=== PATIENT | female | born 1990 | race Caucasian/White ===

== ENCOUNTER → 2020-01-24 | Outpatient (CLI) | payer OTHER, MEDICAID ==
[~2020-01-24] MED LIST: LYRICA 75 MG CA75 MG PO; MACROBID 100 M100 M1 PO; NORCO 5-325 TA1 EACH PO; PERCOCET 10-321 EAC1 PO; TRAMADOL 50 MG50 MG PO; VICODIN OR; ZOFRAN ODT4 MG PO
== END ==
LOC: M.PC 08:20
PROVIDERS: ATTEND Physical Medicine & Rehabilitation
DX: M79.605 Pain in left leg (principal); M79.604 Pain in right leg; M79.672 Pain in left foot; M79.671 Pain in right foot; R53.1 Weakness; Z88.8 Allergy status to other drugs, medicaments and biological substances; Z79.899 Other long term (current) drug therapy